=== PATIENT | female | born 1960 | race Caucasian/White ===

== ENCOUNTER 2021-03-09 11:29 | Emergency (ER) | payer OTHER ==
[~2021-03-09] VITALS: Ht 157.5 cm; Wt 84.4 kg
[2021-03-09 11:33] VITALS: BP 123/87
--- NOTE | 2021-03-09 11:40 | NUR ---
Patient wheelchair assisted to bed 9.
--- NOTE | 2021-03-09 11:40 | NUR ---
PT TAKEN TO ER BED 9 VIA W/C.
--- NOTE | 2021-03-09 11:47 | NUR ---
MITCH TSANG EXAMINING PT
[2021-03-09] MEDS ORDERED: CYCLOBENZAPRINE 10 MG TAB PO ONE (11:55)
[2021-03-09] MEDS ORDERED: KETOROLAC 30 MG/ML VIAL IM ONE (11:55)
--- NOTE | 2021-03-09 12:00 | NUR ---
60 Y/O F BIB DAUGHTER FROM HOME, C/O PAIN ON L SHOULDER RADIATING DOWN TO ARM AND NECK. PT STATES SHE CAN NOT MOVE HER ARM AT ALL AND HAS INCREASED PAIN THIS MORNING. PT STATES SHE STARTED WITH PAIN ON HER R SHOULDER AND SAID IT HAS NOW MOVED TO L SHOULDER FOR 1 MO. DENIES INJURY. PT STATES 10/10 BURNING PAIN. NO BRUISING OR TRAUMA NTOED. PMH: DENIES MED: DENIES NKA
[2021-03-09] MEDS ORDERED: ACET-8386 PO (13:13)
[2021-03-09 13:22] VITALS: BP 123/87
--- NOTE | 2021-03-09 13:22 | NUR ---
Patient discharged with v/s stable. Written and verbal after care instructions given and explained. Patient alert, oriented and verbalized understanding of instructions. Ambulatory with steady gait. All questions addressed prior to discharge. ID band removed. Patient advised to follow up with PMD. Rx of HYDROCODONE-ACETAMINPHEN given. Patient educated on indication of medication including possible reaction and side effects. Opportunity to ask questions provided and answered.
== END 2021-03-09 13:22 | disposition home or self-care (01) ==
LOC: MED 11:29
DX: S46.912A Strain of unspecified muscle, fascia and tendon at shoulder and upper arm level, left arm, initial encounter (principal); X58.XXXA Exposure to other specified factors, initial encounter; Y93.89 Activity, other specified; Y92.89 Other specified places as the place of occurrence of the external cause; Y99.8 Other external cause status
CPT/HCPCS: 96372; 99283; J1885